=== PATIENT | male | born 1960 | race Caucasian/White ===

== ENCOUNTER 2021-03-25 09:28 | Emergency (ER) | payer MEDICARE ==
[~2021-03-25] VITALS: Ht 172.7 cm; Wt 86.4 kg
[2021-03-25 09:33] VITALS: BP 139/72; Ht 172.7 cm; Wt 86.4 kg
[2021-03-25 09:48] LABS: BASOPHILS 0.4 % (0-2); EOSINOPHILS 3.8 % (0-7); HEMATOCRIT 41.2 % (42.0-54.0); HEMOGLOBIN 13.8 g/dL (13.5-17.5); LYMPHOCYTES 31.1 % (15-50); MCH 29.2 pg (26.0-34.0); MCHC 33.5 g/dL (31.0-37.0); MCV 87.1 fL (80.0-100.0); MEAN PLATELET VOLUME 7.1 fL (7.4-10.4); MONOCYTES 8.3 % (2-11); NEUTROPHILS 56.4 % (40-80); PLATELET COUNT 156 10x3/uL (130-400); RBC 4.73 10x6/uL (4.20-6.10); RDW 15.5 % (11.5-14.5)
[2021-03-25 09:54] LABS: CALC OSMOLALITY 284 mosm/kg (275-300); CALCIUM 8.7 mg/dL (8.5-10.1); CHLORIDE - SERUM 106 mmol/L (98-107); CREATININE - SERUM 1.3 mg/dL (0.6-1.3); GLUCOSE 154 mg/dL (74-106); POTASSIUM - SERUM 4.3 mmol/L (3.5-5.1); SODIUM 141 mmol/L (136-145); UREA NITROGEN 14 mg/dL (7-18); eGFR NON AFRICAN AMERICAN 59 mL/min (90-120)
[2021-03-25] MEDS ORDERED: LIPITOR80 MG PO (09:55)
[2021-03-25] MEDS ORDERED: BUSPIRONE HCL7.5 MG PO (09:55)
[2021-03-25] MEDS ORDERED: CELEXA40 MG PO (09:55)
[2021-03-25] MEDS ORDERED: GABAPENTIN300 MG (09:55)
[2021-03-25] MEDS ORDERED: LISINOPRIL5 MG PO (09:56)
[2021-03-25] MEDS ORDERED: FLOMAX0.4 MG PO (09:56)
[2021-03-25] MEDS ORDERED: LAMICTAL200 M1 PO (09:56)
[2021-03-25] MEDS ORDERED: PROSCAR5 MG PO (09:56)
[2021-03-25] MEDS ORDERED: ULTRAM50 MG PO (09:57)
[2021-03-25] MEDS ORDERED: AMBIEN10 MG (09:57)
[2021-03-25] MEDS ORDERED: PEPCID40 MG PO (09:57)
[2021-03-25] MEDS ORDERED: LOW DOSE ASPIRI81 M1 PO (09:58)
[2021-03-25] MEDS ORDERED: CYCLOBENZAPRINE10 MG PO ×3 (09:58→13:30)
[2021-03-25 10:03] LABS: ALBUMIN 3.9 g/dL (3.4-5.0); ALKALINE PHOSPHATASE 144 U/L (30-120); ALT (SGPT) 31 U/L (10-68); AMYLASE - SERUM 43 U/L (25-115); BILIRUBIN - TOTAL 0.43 mg/dL (0.2-1.3); LIPASE 133 U/L (73-393); PROTEIN - SERUM 6.7 g/dL (6.4-8.2); TROPONIN-I < 0.017 ng/mL (0.000-0.060)
[2021-03-25 12:00] LABS: BILIRUBIN NEGATIVE (NEGATIVE); KETONE NEGATIVE (NEGATIVE); NITRITE NEGATIVE (NEGATIVE); UROBILINOGEN NORMAL mg/dL (< 2)
[2021-03-25] MEDS ORDERED: IBUPROFEN800 MG PO (13:30)
== END 2021-03-25 14:13 | disposition home or self-care (01) ==
LOC: D.ER 09:28
PROVIDERS: Family Medicine
DX: R10.11 Right upper quadrant pain (principal); S39.011A Strain of muscle, fascia and tendon of abdomen, initial encounter; N28.1 Cyst of kidney, acquired; I10 Essential (primary) hypertension; Z95.5 Presence of coronary angioplasty implant and graft; E11.9 Type 2 diabetes mellitus without complications